=== PATIENT | female | born 1945 | race Caucasian/White ===

== ENCOUNTER → 2024-01-05 11:23 | Outpatient (REF) | payer MEDICARE, BC, SELFPAY | LOC: DHCBS MAIN 11:23 | PROVIDERS: ATTENDING PHYSICIAN Internal Medicine Cardiovascular Disease; FAMILY PHYSICIAN Internal Medicine | DX: I65.23 Occlusion and stenosis of bilateral carotid arteries (principal); I34.0 Nonrheumatic mitral (valve) insufficiency | CPT/HCPCS: 93306 ==

== ENCOUNTER 2024-01-23 03:39 | Emergency (ER) | payer MEDICARE, BC, SELFPAY ==
[2024-01-23 03:43] VITALS: BP 142/78; BMI 21.6
--- NOTE | 2024-01-23 03:51 | ED.GENMED ---
History of Present Illness
General
Chief Complaint: Fainting/Passed Out
Source: patient
Exam Limitations: none
Time Seen by Provider: 01/23/24 03:48
History of Present Illness
History of Present Illness:
See MDM
Past History
Past History
ED Past Medical History: HTN and Hypercholesterolemia
Social History
Tobacco: Non-smoker
Alcohol: None
Phy Exam
Physical Exam
Physical Exam:
See MDM
Course
Orders/Labs/Results
Orders:
Orders
01/23/24 03:50
Electrocardiogram (*1) Urgent
Reason for Study: Syncope
EKG- Treatment ONCE
01/23/24 03:55
Knee, Left 4 or More Views [CR Knee - Left 4 Or More View*] Urgent
Comment:
Reason For Exam: fall, left knee pain
01/23/24 03:57
Complete Blood Count/With Diff Urgent
Comprehensive Metabolic Panel Urgent
Abnormal Lab Results
01/23/24
03:57
MCH 31.4 H pg
(27.0-31.0)
Absolute Neuts (auto) 7.2 H 10^3/uL
(1.4-6.5)
Absolute Monos (auto) 0.7 H 10^3/uL
(0.1-0.6)
Neutrophils % 77.1 H %
(42.2-75.2)
Lymphocytes % 14.0 L %
(20.5-51.1)
Glucose 100 H mg/dl
(70-99)
AST 49 H U/L
(14-36)
01/23/24 03:57
01/23/24 03:57
Vital Signs
Initial and Last Documented VS:
Initial Vital Signs
Temp Pulse Resp BP Pulse Ox
98.0 F 60 16 142/78 100
01/23/24 03:43 01/23/24 03:43 01/23/24 03:43 01/23/24 03:43 01/23/24 03:43
Last Documented Vital Signs
Temp Pulse Resp BP Pulse Ox
98.0 F 60 16 142/78 98
01/23/24 03:43 01/23/24 03:43 01/23/24 03:43 01/23/24 03:43 01/23/24 04:20
Procedures
Laceration Closure
Left Lower Lateral Jaw:
Status of Wound: clean
Size of Wound in cm: 3
Description of Wound Edges: sharp
Preparation: cleaned with soap & water
Wound exploration: explored to base- no FB
Type of Closure: Dermabond-skin glue
MDM/Problems Addressed
Differential Diagnosis Includes:
HPI and MDM Narrative:
78-year-old female presenting with syncopal event. Patient is currently doing a bowel prep for colonoscopy. She went to the bathroom and had diarrhea. She felt weak and dizzy. She stood up and fell forward. Patient noted a cut in her left chin.
She does not think she had significant head trauma. On arrival, patient is feeling much better. We discussed that her syncope is likely vasovagal versus orthostatic. We discussed blood work, EKG and fluids. Patient is not interested in IV
fluids. I then discussed obtaining CT head given head trauma. Patient acknowledges my concern but not believe she needs that either.
Physical exam
General: Well appearing and non-toxic
HEENT: protecting airway. 3 cm laceration to left chin
Neck: appears supple
CV: No evidence of cyanosis. Regular rate and rhythm
Resp: No accessory muscle use
Abd: Non-distended
Extremities: Swelling and ecchymosis to anterior left knee
Neuro: alert
Psych: Normal affect
Skin: Intact
Problems Addressed including Acute and Chronic Conditions affecting care:
1. Syncope
Acuity: acute
Prognosis: stable
Details: Likely in the setting of her current bowel prep. Will obtain basic blood work and EKG. Symptoms have already improved without intervention
2. Left knee injury
Acuity: acute
Prognosis: stable
Details: Will obtain x-ray to rule out fracture
3. [ ]
Acuity: acute
Prognosis: stable
Details:
4. [ ]
Acuity: acute
Prognosis: stable
Details:
5. [ ]
Acuity:
Prognosis:
Details:
Updates
Differential Diagnosis (but not limited to): Knee contusion, fracture, orthostasis, vasovagal
Testing considered: CT head
Drug therapy (if applicable): OTC meds, please see d/c instruction regarding Rx drugs
Amount and/or Complexity of Data Reviewed
Clinical info obtained from: Patient
External data reviewed: N/A
Labs I independently reviewed (but not limited to): [ ]
Radiology: N/A
Pulse Ox: not hypoxic
EKG independently reviewed: N/A
Tree Worker: N/A
Critical Care: N/A
Risk of Complication:
Social Determinants of health: Good social support
Discussed with other providers: N/A
Escalation of Care includes Admit/Obs: After being observed in the Emergency Department, pt stable for discharge.
Occasional wrong word or 'sound a like' substitutions may have occurred due to the inherent limitations of voice recognition software. Read the chart carefully and recognize, using context, where substitutions have occurred.
*EKG
Interpreted by ED Provider?: Yes
EKG Intrepretation Date: 01/23/24
Interpretation: normal (Sinus rhythm, normal axis, no STEMI)
*Critical Care Note
Total Time (30-74mins, 75-104mins- exclusive of procedures): Not Applicable
ED Attending Note
-
Portions of this chart may have been created with voice recognition software.� Occasional wrong word or��sound alike� substitutions may have occurred due to the inherent limitations of voice recognition software.
Discharge Plan
Departure
Patient Disposition: Home (Routine Discharge)
Date of Disposition: 01/23/24
Time of Disposition: 05:13
Patient with high blood pressure during this ER visit?: Yes
Discharge Problem:
Syncope, Laceration of jaw
Instructions: Syncope (Fainting) (DC)
Prescriptions:
No Action
aspirin 81 MG tablet,delayed release (DR/EC)
81 mg PO DAILY
losartan 25 MG tablet
25 mg PO DAILY
escitalopram oxalate 10 MG tablet
10 mg PO DAILY
rosuvastatin 10 MG tablet
10 mg PO QPM
cholecalciferol (vitamin D3) 2,000 UNITS tablet
2,000 units PO DAILY
coQ10 (ubiquinol) 100 MG capsule
100 mg PO DAILY
Referrals:
Jorge De Leon MD [Family Provider] -
Activity Restrictions/Additional Instructions:
Please return for any worsening symptoms.
You may return at any time if you have further concerns.
Please follow up with your doctor at the first available appointment, preferably this week.
Your wound was fixed with derma-mack. This is a special glue that holds a wound closed similar to stitches. This type of wound closure will eventually fall off by itself and does not need to be removed. You may wash the area very gently, but do not
scrub or pick at the glue. Watch for signs of infection: fever over 100.5�, increasing pain, red streaks around wound, swelling, drainage of pus, or bad smell. If any of these happen, return to ED promptly. All wounds may scar, however you may
reduce the appearance of scarring by avoiding sun exposure to the scar and applying skin moisturizer with spf protection to the scar once the wound is healed.
Thank you for choosing [facility].
Interventions
Interventions:
*Risk Screen - Suicide Last Done: 01/23/24 03:43
*General Assessment Last Done: 01/23/24 03:43
*Neglect/Abuse Screening Last Done: 01/23/24 03:43
ED- Fall Risk Assessment Last Done: 01/23/24 04:20
ED- Cardiac Assessment Last Done: 01/23/24 04:20
ED- Neurological Assessment Last Done: 01/23/24 04:20
Discharge Date and Time
Print Language: INDIAN
[2024-01-23 04:05] LABS: % Basophils 0.5 % (0-2); % Eosinophils 0.6 % (0-6); % Immature Granulocytes 0.4 % (0-0.5); % Monocytes 7.4 % (1.7-9.3); % Neutrophils 77.1 % (42.2-75.2); Absolute Basophils 0.1 10^3/uL (0-0.2); Absolute Eosinophils 0.1 10^3/uL (0-0.7); Absolute Lymphocytes 1.3 10^3/uL (1.2-3.4); Absolute Monocytes 0.7 10^3/uL (0.1-0.6); Absolute Neutrophils 7.2 10^3/uL (1.4-6.5); Hematocrit 38.2 % (37.0-47.0); Hemoglobin 13.2 g/dL (12.0-16.0); Mean Corp Hgb Conc. 34.6 g/dL (33.0-37.0); Mean Corpuscular Hgb 31.4 pg (27.0-31.0); Mean Platelet Volume 9.3 fL (7.4-10.4); Nucleated Red Blood Cells % 0 %; Platelet Count 263 10^3/uL (130-400); Red Cell Dist. Width 13.1 % (11.5-14.5); White Blood Cell Count 9.4 10^3/uL (4.8-10.8)
[2024-01-23 04:22] LABS: ALT (SGPT) 27 U/L (0-35); AST (SGOT) 49 U/L (14-36); Albumin 3.9 g/dl (3.5-5.0); Alkaline Phosphatase 100 U/L (38-126); Blood Urea Nitrogen 14 mg/dl (7-17); Calcium 9.4 mg/dl (8.4-10.2); Carbon Dioxide 25 mmol/L (22-30); Chloride 106 mmol/L (98-107); Estimated Creatinine Clearance 59 ml/min; Glucose 100 mg/dl (70-99); Potassium 3.8 mmol/L (3.5-5.1); Sodium 140 mmol/L (135-145); Total Bilirubin 0.5 mg/dl (0.2-1.3); Total Protein 6.7 g/dl (6.3-8.2); eGFR > 60.00
[2024-01-23 05:00] VITALS: BP 137/79
[2024-01-23 06:00] VITALS: BP 130/74
[2024-01-23 07:00] VITALS: BP 115/71
--- NOTE | 2024-01-23 07:56 | EDRN ---
the pt was received from previous tube man RN, the pt is sleeping in stretcher in the lowest position, side rails up x1, call sim within reach, HOB elevated, no s/s of distress, per Dr. Rogers the pt is able to sleep in ER until she needs to go
to her endoscopy and colonoscopy today at 0945 here at [facility], discharge paper work provided to the pt by previous tube man RN, when this RN spoke to the pt the pt denies any dizziness or light headedness, the pt is able to ambulate
to the bathroom on her own without assistance, will continue to monitor the pt closely
--- NOTE | 2024-01-23 08:22 | EDRN ---
the pt pressed the call sim and stated that she wanted to leave to go to her appointment, this RN removed LAC #20 PIV and placed a pressure dressing, catheter was intact, the pt stated that she doesn't remember getting discharge instructions so
this RN re printed discharge instructions and performed discharge teaching to the pt
== END 2024-01-23 08:23 | disposition home or self-care (01) ==
LOC: EMR 03:39
PROVIDERS: EMERGENCY PHYSICIAN Student in an Organized Health Care Education/Training Program; FAMILY PHYSICIAN Internal Medicine
DX: R55 Syncope and collapse (principal); S01.81XA Laceration without foreign body of other part of head, initial encounter; W19.XXXA Unspecified fall, initial encounter; I10 Essential (primary) hypertension; E78.00 Pure hypercholesterolemia, unspecified
CPT/HCPCS: 99283; 12013; 73564; 80053; 85025; 93005

== ENCOUNTER → 2024-02-06 13:14 | Outpatient (REF) | payer MEDICARE, BC, SELFPAY | LOC: HWRAD 13:14 | PROVIDERS: ATTENDING PHYSICIAN Internal Medicine Cardiovascular Disease; FAMILY PHYSICIAN Internal Medicine | DX: I25.10 Atherosclerotic heart disease of native coronary artery without angina pectoris (principal); I10 Essential (primary) hypertension; E78.5 Hyperlipidemia, unspecified | CPT/HCPCS: 93880 ==

== ENCOUNTER → 2024-03-25 08:03 | Day surgery (SDC) | payer MEDICARE, BC, SELFPAY | LOC: GI 08:03 | PROVIDERS: ATTENDING PHYSICIAN Internal Medicine Gastroenterology | DX: Z12.11 Encounter for screening for malignant neoplasm of colon (principal); K64.8 Other hemorrhoids; K31.89 Other diseases of stomach and duodenum; R12 Heartburn | CPT/HCPCS: 43239; G0121; 88305; 88342 ==

== ENCOUNTER → 2024-05-28 08:41 | Outpatient (REF) | payer MEDICARE, BC, SELFPAY | LOC: MRI 3T 08:41 | PROVIDERS: ATTENDING PHYSICIAN Surgery; FAMILY PHYSICIAN Internal Medicine | DX: R92.2 Inconclusive mammogram (principal); Z80.3 Family history of malignant neoplasm of breast | CPT/HCPCS: 77049; A9585 ==

== ENCOUNTER → 2024-08-28 07:59 | Outpatient (REF) | payer MEDICARE, BC, SELFPAY | LOC: WDC 07:59 | PROVIDERS: ATTENDING PHYSICIAN Surgery; FAMILY PHYSICIAN Internal Medicine | DX: Z12.31 Encounter for screening mammogram for malignant neoplasm of breast (principal); Z80.3 Family history of malignant neoplasm of breast; R92.2 Inconclusive mammogram | CPT/HCPCS: 77063; 77067 ==

== ENCOUNTER → 2024-09-06 09:04 | Outpatient (REF) | payer MEDICARE, BC, SELFPAY | LOC: WDC 09:04 | PROVIDERS: ATTENDING PHYSICIAN Surgery; FAMILY PHYSICIAN Internal Medicine | DX: R92.8 Other abnormal and inconclusive findings on diagnostic imaging of breast (principal) | CPT/HCPCS: 76642 ==

== ENCOUNTER 2024-12-14 15:35 | Emergency (ER) | payer MEDICARE, BC, SELFPAY ==
[2024-12-14 15:40] VITALS: BP 145/87
[2024-12-14 18:20] VITALS: BMI 21.5
[2024-12-14] MEDS: TYLENOL 650 MG PO (19:45)
--- NOTE | 2024-12-14 19:50 | ED.GENMED ---
History of Present Illness
<Kelley Bellamy PA-C - Last Filed: 12/14/24 21:07>
General
Chief Complaint: Musculo-Skeletal Complaint
Source: patient
Exam Limitations: none
Time Seen by Provider: 12/14/24 19:06
Nursing documentation reviewed up to this point in time: agreed with
History of Present Illness
History of Present Illness:
pt is a 79 y/o F
h/o CAD stent
on baby asa
here with L knee pain and L rib pain after fall
say sshe was walking outside and didn't see a piece of plastic bag on the ground and fell landing on her L knee and her arm went into her L ribs
she didn't hit her head/neck/back
she has pain with deep breathing in damien L ribs
otherwise at rest her ribs katlyn not painful
no abdomianl or flank pain
most significant pain is in the L tibial region, with large swelling/bruise
painful weight bearing but was able to walk
no numbness/tingling/weakness
lives alone
drove herself here
Past History
<Kelley Bellamy PA-C - Last Filed: 12/14/24 21:07>
Past History
ED Past Medical History: CAD, HTN and Hypercholesterolemia
Social History
Tobacco: Non-smoker
Alcohol: None
Review of Systems
<Kelley Bellamy PA-C - Last Filed: 12/14/24 21:07>
Review of Systems
Allergies reviewed?: Yes
All Other Systems: Not applicable
Phy Exam
<Kelley Bellamy PA-C - Last Filed: 12/14/24 21:07>
Physical Exam
Physical Exam:
GENERAL: Alert , in no apparent distress
HEAD: NCAT
NECK: no midline tenderness, active ROM intact, no paraspinal muscle tenderness;
EYE: pupils equal and reactive, EOMs intact.
ENT: o/p clr, mmm. no hemotympanum
CARDIAC: Regular rate and rhythm, no edema
LUNGS: Clear breath sounds bilaterally, no acute respiratory distress, no wheezes/rales/rhonchi
L ribs nontender, pain in L ribs with L arm extension
and deep breathing
ABDOMEN: Soft, without focal tenderness, no r/g, no cvat
no bruising
NEUROLOGICAL: Alert and oriented, no focal neuro deficits, CN intact, 5/5 strength, sensation intact
SKIN: Warm and dry,
moderate hematoma L anterior prox tibial region tender
MUSCULOSKELETAL: moderate tenderness L anterior tibial region
painful flexion 30 degrees
but stable joint
normal distal ankle/foot exam
nontender hip
PSYCH: Normal and appropriate interaction.
Course
<Kelley Bellamy PA-C - Last Filed: 12/14/24 21:07>
Orders/Labs/Results
Orders:
Orders
12/14/24 15:46
CR Knee - Left 4 Or More View* Urgent
Comment:
Reason For Exam: fall
CR Leg Tibia/fibula Left 2 Vw Urgent
Comment:
Reason For Exam: fall
Ribs, Left 3 View W/PA Chest CR [CR Ribs-left 3 Vw W/pa Chest] Urgent
Comment:
Reason For Exam: fall
12/14/24 19:42
CT Chest W/o Iv Contrast Urgent
Comment:
Reason For Exam: L rib pain after fall
CT Lower Ext W/o Iv Cont Lt Urgent
Comment:
Reason For Exam: left tibial plateau concerns for fx
12/14/24 19:43
Acetaminophen [Tylenol] 650 mg .ROUTE .STK-MED ONE
Acetaminophen [Tylenol] 650 mg PO NOW STA
Vital Signs
Initial and Last Documented VS:
Initial Vital Signs
Temp Pulse Resp BP Pulse Ox
97.6 F 58 16 145/87 99
12/14/24 15:40 12/14/24 15:40 12/14/24 15:40 12/14/24 15:40 12/14/24 15:40
Last Documented Vital Signs
Temp Pulse Resp BP Pulse Ox
97.6 F 60 16 143/79 94
12/14/24 15:40 12/14/24 23:21 12/14/24 23:21 12/14/24 23:21 12/14/24 23:21
<Andrea Matos PA-C - Last Filed: 12/14/24 23:13>
Orders/Labs/Results
Orders:
Orders
12/14/24 15:46
CR Knee - Left 4 Or More View* Urgent
Comment:
Reason For Exam: fall
CR Leg Tibia/fibula Left 2 Vw Urgent
Comment:
Reason For Exam: fall
Ribs, Left 3 View W/PA Chest CR [CR Ribs-left 3 Vw W/pa Chest] Urgent
Comment:
Reason For Exam: fall
12/14/24 19:42
CT Chest W/o Iv Contrast Urgent
Comment:
Reason For Exam: L rib pain after fall
CT Lower Ext W/o Iv Cont Lt Urgent
Comment:
Reason For Exam: left tibial plateau concerns for fx
12/14/24 19:43
Acetaminophen [Tylenol] 650 mg .ROUTE .STK-MED ONE
Acetaminophen [Tylenol] 650 mg PO NOW STA
Vital Signs
Initial and Last Documented VS:
Initial Vital Signs
Temp Pulse Resp BP Pulse Ox
97.6 F 58 16 145/87 99
12/14/24 15:40 12/14/24 15:40 12/14/24 15:40 12/14/24 15:40 12/14/24 15:40
Last Documented Vital Signs
Temp Pulse Resp BP Pulse Ox
97.6 F 60 16 143/79 94
12/14/24 15:40 12/14/24 23:21 12/14/24 23:21 12/14/24 23:21 12/14/24 23:21
<Kelley Bellamy PA-C - Last Filed: 12/14/24 21:07>
MDM/Problems Addressed
Differential Diagnosis Includes:
tibial hematoma, tibial plateau fx, L rib fracture
MDM/Problems Addressed:
79 y/o F NO AC
cad
here with L rib pain (mild) and moderate L anterior tibial pain and swelling after mechanical fall
no head strike
pain with deep breathing, no SOB
no bruising
nontender to abdomen and flankl
L knee mod hematoma just idstal to prox tibia
able to range the knee with pain
xray indep reviewed, no obvious fx
will CT knee an dribs
dispo pending CT
signed out to dale koenig at 2100
<Andrea Matos PA-C - Last Filed: 12/14/24 23:13>
*Radiology
Radiology exam reviewed: radiology read reviewed
*Critical Care Note
Total Time (30-74mins, 75-104mins- exclusive of procedures): Not Applicable
<Andrea Matos PA-C - Last Filed: 12/14/24 23:13>
Patient Management
Escalation/DeEscalation of care consider admission/obs:
Patient received in signout pending CTA of the chest and CT of the lower extremity results. Ultimately the CT did not show any acute fracture within the lower extremity. Contusion/hematoma noted. Discussed different modalities for knee
immobilization and patient would like to try the knee immobilizer prior to discharge but if was not comfortable with this was okay with an Salbador wrap. CT of the chest did not show any rib fractures however there was a 4-1/2 cm thoracic aortic
aneurysm seen that was previously unknown. Calcifications within the breast tissues also noted and patient advised to follow-up with her primary care provider to make sure her mammogram is up-to-date. patient is otherwise stable for discharge home.
Aware of return precautions
ED Attending Note
<Kelley Bellamy PA-C - Last Filed: 12/14/24 21:07>
-
Portions of this chart may have been created with voice recognition software.� Occasional wrong word or��sound alike� substitutions may have occurred due to the inherent limitations of voice recognition software.
Discharge Plan
Departure
Patient Disposition: Home (Routine Discharge)
Date of Disposition: 12/14/24
Time of Disposition: 23:00
Patient with high blood pressure during this ER visit?: Yes
Discharge Problem:
Contusion of knee, left, Contusion of rib on left side, Aortic aneurysm, thoracic
Instructions: Aortic Aneurysm (DC)
Prescriptions:
No Action
aspirin 81 MG tablet,delayed release (DR/EC)
81 mg PO DAILY
losartan 25 MG tablet
25 mg PO DAILY
escitalopram oxalate 10 MG tablet
10 mg PO DAILY
rosuvastatin 10 MG tablet
10 mg PO QPM
cholecalciferol (vitamin D3) 2,000 UNITS tablet
2,000 units PO DAILY
coQ10 (ubiquinol) 100 MG capsule
100 mg PO DAILY
Referrals:
Brayan Interiano MD [Active] - (Vascular Surgery - Please call for an appointment when office opens on Monday)
UNKNOWN - PT DOES,NOT KNOW [Family Provider] -
Interventions
Interventions:
*Risk Screen - Suicide Last Done: 12/14/24 15:43
*General Assessment Last Done: 12/14/24 18:20
*Neglect/Abuse Screening Last Done: 12/14/24 15:43
*ED- Fall Risk Assessment Last Done: 12/14/24 18:20
*ED COVID-19 Vaccine History Last Done: 12/14/24 18:20
*Nursing Disposition Last Done: 12/14/24 23:32
ED-Musculoskeletal Assessment Last Done: 12/14/24 18:21
Discharge Date and Time
Discharge Date/Time: 12/14/24 23:33
Print Language: SAO TOMEAN
[2024-12-14 20:47] VITALS: BP 141/87
[2024-12-14 23:21] VITALS: BP 143/79
== END 2024-12-14 23:33 | disposition home or self-care (01) ==
LOC: EMR 15:35
PROVIDERS: EMERGENCY PHYSICIAN Emergency Medicine
DX: S20.212A Contusion of left front wall of thorax, initial encounter (principal); S80.02XA Contusion of left knee, initial encounter; Y93.01 Activity, walking, marching and hiking; I25.10 Atherosclerotic heart disease of native coronary artery without angina pectoris; I10 Essential (primary) hypertension; E78.00 Pure hypercholesterolemia, unspecified; Z86.79 Personal history of other diseases of the circulatory system
CPT/HCPCS: 99284; 71101; 71250; 73564; 73590; 73700

== ENCOUNTER → 2025-07-24 11:09 | Outpatient (REF) | payer MEDICARE, BC, SELFPAY | LOC: RAD 11:09 | PROVIDERS: ATTENDING PHYSICIAN Internal Medicine Cardiovascular Disease; FAMILY PHYSICIAN Internal Medicine | DX: Z86.79 Personal history of other diseases of the circulatory system (principal) | CPT/HCPCS: 71250 ==

== ENCOUNTER 2025-07-27 05:57 | Emergency (ER) | payer MEDICARE, BC, SELFPAY ==
[2025-07-27 05:59] VITALS: BP 132/82
[2025-07-27 06:49] VITALS: BP 134/83
--- NOTE | 2025-07-27 07:31 | ED.GENMED ---
History of Present Illness
General
Chief Complaint: Allergic Reaction
Source: patient
Exam Limitations: none
Time Seen by Provider: 07/27/25 07:19
History of Present Illness
History of Present Illness:
80-year-old female presents with diffuse pruritus. Started as itching scalp. She feels she may have reacted to shampoo she was using. The itchiness spread to the body over the last several days. She has been trying Benadryl without significant
relief. She denies rash trouble swallowing or breathing. No fevers. No other medical problems. No other complaints at this time
Past History
Past History
ED Past Medical History: CAD, HTN and Hypercholesterolemia
Social History
Tobacco: Non-smoker
Alcohol: None
Phy Exam
Physical Exam
Physical Exam:
General: Well-appearing female no acute respiratory distress
HEENT: Normal cephalic atraumatic posterior pharynx patent tongue is not swollen uvula midline neck is supple no trismus or drooling
Heart: Regular rate and rhythm
Lungs: Clear no wheeze or stridor
Skin warm excoriation toth noted over the shoulders bilaterally no obvious rash no edema or cyanosis
Course
Orders/Labs/Results
Orders:
Orders
07/27/25 07:30
Prednisone [Deltasone] 50 mg PO NOW STA
Vital Signs
Initial and Last Documented VS:
Initial Vital Signs
Temp Pulse Resp BP Pulse Ox
97.3 F 78 20 132/82 98
07/27/25 05:59 07/27/25 05:59 07/27/25 05:59 07/27/25 05:59 07/27/25 05:59
Last Documented Vital Signs
Temp Pulse Resp BP Pulse Ox
97.3 F 61 15 134/83 98
07/27/25 05:59 07/27/25 06:49 07/27/25 06:49 07/27/25 06:49 07/27/25 06:49
MDM/Problems Addressed
Differential Diagnosis Includes:
Patient having pruritic reaction to possible shampoo. Benadryl not helping. Will prescribe prednisone. No signs of respiratory distress. No fever to suggest infectious source. Recommended antihistamines otherwise. Stable for discharge
*Pulse Oximetry
SaO2: 98
Oxygen Mode of Delivery: Room air
Patient hypoxic: no
*Critical Care Note
Total Time (30-74mins, 75-104mins- exclusive of procedures): Not Applicable
ED Attending Note
-
Portions of this chart may have been created with voice recognition software.� Occasional wrong word or��sound alike� substitutions may have occurred due to the inherent limitations of voice recognition software.
Discharge Plan
Departure
Patient Disposition: Home (Routine Discharge)
Date of Disposition: 07/27/25
Time of Disposition: 07:32
Patient with high blood pressure during this ER visit?: No
Discharge Problem:
Allergic reaction
Prescriptions:
New
prednisone 10 mg Tablet
See Rx Instructions .ROUTE .COMPLEX Qty: 30 0RF
Rx Instructions:
Take By Mouth:
40 mg daily x3 days, 30 mg daily x3 days,
20 mg daily x3 days, 10 mg daily x3 days.
No Action
aspirin 81 MG tablet,delayed release (DR/EC)
81 mg PO DAILY
losartan 25 MG tablet
25 mg PO DAILY
escitalopram oxalate 10 MG tablet
10 mg PO DAILY
rosuvastatin 10 MG tablet
10 mg PO QPM
cholecalciferol (vitamin D3) 2,000 UNITS tablet
2,000 units PO DAILY
coQ10 (ubiquinol) 100 MG capsule
100 mg PO DAILY
Activity Restrictions/Additional Instructions:
Continue with antihistamines. Take steroids as directed. Return if worse otherwise follow-up with your doctor
Interventions
Interventions:
*Risk Screen - Suicide Last Done: 07/27/25 05:59
*General Assessment Last Done: 07/27/25 07:17
*Neglect/Abuse Screening Last Done: 07/27/25 05:59
*ED- Fall Risk Assessment Last Done: 07/27/25 07:17
*ED COVID-19 Vaccine History Last Done: 07/27/25 07:17
*ED Influenza Vaccine History Last Done: 07/27/25 07:17
ED- Cardiac Assessment Last Done: 07/27/25 06:47
ED- Pulmonary Assessment Last Done: 07/27/25 06:47
ED-Skin Assessment Last Done: 07/27/25 06:47
Discharge Date and Time
Print Language: LIBYAN
[2025-07-27] MEDS: DELTASONE 50 MG PO (07:44)
== END 2025-07-27 09:54 | disposition home or self-care (01) ==
LOC: EMR 05:57
PROVIDERS: EMERGENCY PHYSICIAN Emergency Medicine; FAMILY PHYSICIAN Internal Medicine
DX: T78.40XA Allergy, unspecified, initial encounter (principal); X58.XXXA Exposure to other specified factors, initial encounter; I25.10 Atherosclerotic heart disease of native coronary artery without angina pectoris; I10 Essential (primary) hypertension; E78.00 Pure hypercholesterolemia, unspecified
CPT/HCPCS: 99283

== ENCOUNTER → 2025-08-05 08:43 | Outpatient (REF) | payer MEDICARE, BC, SELFPAY | LOC: RAD 08:43 | PROVIDERS: ATTENDING PHYSICIAN Internal Medicine Rheumatology; FAMILY PHYSICIAN Internal Medicine | DX: Z13.820 Encounter for screening for osteoporosis (principal); M81.0 Age-related osteoporosis without current pathological fracture | CPT/HCPCS: 77080 ==

== ENCOUNTER → 2025-08-14 09:59 | Outpatient (REF) | payer MEDICARE, BC, SELFPAY | LOC: RAD 09:59 | PROVIDERS: ATTENDING PHYSICIAN Internal Medicine Cardiovascular Disease; FAMILY PHYSICIAN Internal Medicine | DX: Z86.79 Personal history of other diseases of the circulatory system (principal) | CPT/HCPCS: 76770 ==

== ENCOUNTER → 2025-08-30 07:53 | Outpatient (REF) | payer MEDICARE, BC, SELFPAY | LOC: WDC 07:53 | PROVIDERS: ATTENDING PHYSICIAN Obstetrics & Gynecology; FAMILY PHYSICIAN Surgery | DX: Z12.31 Encounter for screening mammogram for malignant neoplasm of breast (principal) | CPT/HCPCS: 77063; 77067 ==